=== PATIENT | male | born 1955 | race Caucasian/White ===

== ENCOUNTER 2017-11-04 16:32 | Observation (INO) ==
[2017-11-04] MEDS ORDERED: Naloxone 0.4 MG/ML INJ IVP PRN (20:48)
[2017-11-04] MEDS ORDERED: Ipratropium/Albuterol Neb 3 ML IH PRN (20:52)
[2017-11-04] MEDS: *HR* Heparin 5,000 UNIT/ML VIAL SQ SCH (22:01)
[2017-11-04] MEDS: 0.9 % Sodium Chloride 1,000 ML IVC SCH (22:01)
[2017-11-04] MEDS: *HR* Morphine 2 MG/ML SYRINGE IVP PRN (22:02)
--- NOTE | 2017-11-04 22:28 | Internal Med History&Physical ---
Date of Encounter: 11/04/17 Time of Encounter: 20:30 Assessment and Plan (1) SBO (small bowel obstruction) Current visit: No Status: Acute 1. Will place NG tube to LIWS. 2. Will keep npo and hydrate with IVF. 3. Dr. Velazquez will be consulted for surgical support. 4. Will order AAS in the morning to evaluate SBO. 5. IV Morphine PRN abdominal pain. 6. Will provide anti-emetics PRN. (2) Chest pain Current visit: Yes Status: Acute 1. Suspect this is secondary to abdominal pressure from SBO. 2. Chest pain resolved after NGT. 3. Will monitor on telemetry and trend troponins and EKG's. Qualifiers: Chest pain type: other chest pain Qualified Code(s): R07.89 - Other chest pain; R07.8 - Other chest pain (3) DVT prophylaxis Current visit: Yes Status: Acute 1. Heparin SQ. Internal Medicine - H&P: HPI Chief complaint: abdominal pain Admitted From: Hospital to Hospital Transfer Plans for Post Hospital Care: Home History of present illness: Mr. Rinaldi is a 62 year old male who presents in transfer from [facility] ER with complaints of chest pain, shortness of breath, and abdominal pain. Workup there revealed the patient had evidence of a small bowel obstruction on CT scan imaging. EKG and troponins were negative. Dr. Velazquez was contacted by ER and recommended patient be transferred here to the hospitalist service with a consult to General surgery. Of note, patient had a recent colonoscopy about a week ago by Dr. Ro which was negative. Upon my assessment of the patient, he is resting in bed comfortably with an NG tube in place. He states he feels much better since his NG tube was placed. He has had minimal abdominal pain since then. He denies any further chest pain or shortness of breath. He states he has had heart disease and a heart attack years ago, but he takes no medications now that I can elicit from him or his records. His chest pain was pressure in sensation, and he had shortness of breath. His chest pain and shortness of breath resolved once his NG tube was placed and his abdomen was decompressed. I suspect his chest pain was secondary to abdominal distention, but given his history, we will need to monitor his cardiac status. Past Med Surg Social Fam HX - Past Medical History Attestation: Yes The following information was validated with the patient. Source: patient, old records reviewed Medical history: arthritis, COPD, GERD, hyperlipidemia, hypertension, myocardial infarction Psychiatric history: no psych history - Past Surgical History Surgical History: cholecystectomy - Social History Smoking Status: Former smoker Smokeless Tobacco Status: No Alcohol use: none Drug use: none Current living situation: Home, With Family Activity Level: Independent ambulation Recent Out of Country Travel Within the Last 8 Weeks: No - Family History Brother Living Status: Hx Family Cancer: Yes (colon cancer) Internal Medicine - H&P: Meds Acetaminophen [Tylenol] 650 mg PO Q6HR PRN 11/04/17 [History] 3 Allergy/AdvReac Type Severity Reaction Status Date / Time No Known Allergies Allergy Verified 11/04/17 13:42 - Constitutional Constitutional: no chills, no fever(s), no night sweats - EENT Eyes: no blurry vision, no change in vision Ears: no ear pain, no tinnitus Nose, mouth and throat: no nasal congestion, no sinus pressure, no sore throat - Cardiovascular Cardiovascular ROS IM: chest pain, dyspnea - Respiratory Respiratory: dyspnea, no cough, no hemoptysis, no chest congestion, no excessive phlegm production, no change in phlegm color - Gastrointestinal Gastrointestinal: abdominal pain, diarrhea, nausea, vomiting, no hematemesis, no hematochezia, no melena - Genitourinary Genitourinary ROS male: no dysuria, no flank pain, no hematuria - Musculoskeletal Musculoskeletal ROS IM: no arthralgias, no back pain, no muscle cramps, no myalgias - Integumentary Integumentary IM: no rash, no jaundice - Neurological Neurological ROS: no dizziness, no focal weakness, no frequent falls, no headache(s) - Psychiatric Psychiatric: no anxiety, no depression - Endocrine Endocrine IM: no polydipsia, no polyuria - Hematologic/Lymphatic Hematologic/Lymphatic: no easy bruising, no lymphadenopathy - Allergic/Immunologic Allergic/Immunologic: no wheezing, no GI upset with certain foods - Constitutional Vitals: Temp Pulse Resp BP Pulse Ox 97.9 F 80 19 150/89 96 11/04/17 22:13 11/04/17 22:13 11/04/17 22:13 11/04/17 22:13 11/04/17 22:13 General appearance: Present: cooperative, mild distress (minimal), A&O X 3, pleasant - Head Head exam: Present: atraumatic, normal inspection - Eye Eye exam: Present: EOMI, PERRL. Absent: scleral icterus Pupils: Present: normal accommodation - ENT ENT exam: Present: mucous membranes dry, normal exam Additional comments: NG tube in place - Neck Neck exam general surgery: Present: full ROM, supple. Absent: lymphadenopathy, tenderness - Respiratory Respiratory exam: Present: CTAB. Absent: accessory muscle use, chest wall tenderness, rales, respiratory distress, wheezes - Cardiovascular Cardiovascular exam: Present: RRR, +S1, +S2. Absent: diastolic murmur, systolic murmur - GI/Abdominal GI/Abdominal exam: Present: hypoactive bowel sounds, soft, tenderness (minimal ternderness now; abdomen soft on exam). Absent: guarding, hepatomegaly, mass, normal bowel sounds, rebound, splenomegaly - Extremities Exam Extremities exam: Present: full ROM, warm, radial pulses palpable and symmetrical. Absent: calf tenderness, tenderness - Back Exam Back exam: Present: normal inspection. Absent: CVA tenderness (L), CVA tenderness (R) - Neurological Exam Neurological exam: Present: alert, CN II-XII intact, oriented X3, no focal deficits - Psychiatric Psychiatric exam: Present: normal affect, normal mood - Skin Skin exam: Present: dry, warm. Absent: rash Internal Med - H&P Results - Labs Labs: Cardiac Enzymes 11/04/17 Range/Units 21:23 Troponin I < 0.03 (< 0.04) ng/mL I reviewed labs from [facility] include the following: WBC 9.1 Hemoglobin 15.4 Hematocrit 44.7 Platelet count 287 Sodium 135 Potassium 4.4 Chloride 100 Carbon dioxide 25 BUN 21 Creatinine 0.[address] scan report reviewed suggesting small bowel obstruction - EKG Data -: EKG Interpreted by Myself - EKG Data Prior EKG available for review: no EKG comments: 11/04/17 22:34 NSR; no acute changes - Diagnostic Studies Chest x-ray Status: image reviewed by me (negative)
[2017-11-05 04:00] LABS: Basophils % 0.2 %; Hematocrit 42.2 % (37.5-50.1); Hemoglobin 13.9 g/dL (12.9-16.9); Immature Granulocytes % 0.2 % (0-4); Lymphocytes # 0.8 K/mcL (0.6-4.6); Lymphocytes % 6.2 %; Mean Corpuscular HGB Conc 32.9 g/dL (31.6-35.5); Mean Corpuscular Hemoglobin 29.6 pg (28.0-33.3); Mean Platelet Volume 9.2 fL (9.4-12.4); Monocytes # 1.2 K/mcL (0.0-1.3); Monocytes % 9.7 %; Neutrophils # 10.3 K/mcL (1.6-8.9); Platelet Count 258 K/mcL (140-400); Red Blood Count 4.69 M/mcL (4.19-5.50); Red Cell Distribution Width 12.6 % (11.5-14.5); Segmented Neutrophils % 83.7 %
[2017-11-05 04:10] LABS: Alanine Aminotransferase 10 Units/L (7-52); Albumin 4.3 g/dL (3.5-5.7); Albumin/Globulin Ratio 1.5 (1.1-2.2); Alkaline Phosphatase 92 Units/L (34-104); Aspartate Amino Transferase 12 Units/L (13-39); BUN/Creatinine Ratio 28 (6-26); Bilirubin,Total 0.4 mg/dL (0.3-1.0); Blood Urea Nitrogen 32 mg/dL (8-23); Calcium 8.8 mg/dL (8.6-10.3); Carbon Dioxide 24 mEq/L (23-29); Chloride 102 mEq/L (98-107); Globulin 2.9 g/dL (2.4-3.5); Glucose 114 mg/dL (70-105); Magnesium 2.1 mg/dL (1.6-2.6); Osmolality,Calculated 292 (280-300); Potassium 4.7 mEq/L (3.5-5.1); Sodium 137 mEq/L (136-145); Total Protein 7.2 g/dL (6.4-8.9); eGFR For African Americans > 60 (> 60); eGFR For Non-African Americans > 60 (> 60)
[2017-11-05] MEDS: Ondansetron 4 MG/2 ML VIAL IVP PRN ×2 (04:12→14:00)
[2017-11-05] MEDS: *HR* Morphine 2 MG/ML SYRINGE IVP PRN ×4 (07:34→20:57)
[2017-11-05] MEDS: *HR* Heparin 5,000 UNIT/ML VIAL SQ SCH ×2 (07:34→16:43)
[2017-11-05] MEDS: 0.9 % Sodium Chloride 1,000 ML IVC SCH (07:58)
--- NOTE | 2017-11-05 08:11 | General Surgery Consult Note ---
<Leyla Alexandre - Last Filed: 11/05/17 16:41> Date of Encounter: 11/05/17 Time of Encounter: 08:07 Assessment and Plan (1) Small bowel obstruction Current Visit: Yes Status: Acute 62 y M presenting with abdominal pain x 3 days, with CT concerning for Small Bowel Obstruction Trial of initial nonoperative management, with monitoring for improvement of status: -Gastrointestinal decompression: NG tube to LIWS. Pt states pain improvement s/ p NG tube -NPO until awaiting return to bowel function -IV hydration, replete electrolytes prn -Continue pain management -Anti-emetics PRN (2) DVT prophylaxis Current Visit: Yes Status: Acute Per protocol. Management per primary team. History of Present Illness Consult date: 11/05/17 Reason for consult: abdominal pain Requesting physician: Leandro Sheehan History of present illness: 62 year old male with past medical history of COPD, GERD, hyperlipidemia, hypertension, myocardial infarction and past surgical Hx of cholecystectomy 2 years ago who presented in transfer from [facility] ER with abdominal pain and chest pain. EKG and troponins negative. Pt endorses nausea and cramping abdominal pain x3 days, soft stools, NBNB emesis x 3 days. Pt endorses passing gas and BM movement yesterday. BM was dark-colored and appeared bloody. CT scan imaging concerning for evidence of a small bowel obstruction. Pt states abdominal pain improved following placement of NG tube. Past Med Surg Social Fam HX - Past Medical History Medical history: arthritis, COPD, GERD, hyperlipidemia, hypertension, myocardial infarction Psychiatric history: no psych history - Past Surgical History Surgical History: cholecystectomy - Social History Smoking Status: Former smoker Smokeless Tobacco Status: No Alcohol use: none Drug use: none - Family History Brother Living Status: Hx Family Cancer: Yes (colon cancer) Medications and Allergies Acetaminophen [Tylenol] 650 mg PO Q6HR PRN 11/04/17 [History] 3 Allergy/AdvReac Type Severity Reaction Status Date / Time No Known Allergies Allergy Verified 11/04/17 13:42 Review of Systems All systems PM: As documented above in the HPI. General Surgery Exam Initial Vital Signs Temp Pulse Resp BP Pulse Ox 97.4 F L 72 16 162/91 98 11/04/17 18:25 11/04/17 18:25 11/04/17 18:25 11/04/17 18:25 11/04/17 18:25 - General physical appearance no distress - Eyes normal ocular movement - ENT poor halfway - Neck other (NG tube in place) - Respiratory normal expansion, normal respiratory effort, clear to auscultation - Cardiovascular Cardiovascular exam: Present: RRR, no murmurs/rubs/gallops - Abdomen Abdomen general surgery: Present: bowel sounds present, soft, tender (mild tenderness on palpation in RUQ) - Psychiatric Psychiatric general surgery: Present: appropriate, speech is normal Exam Initial Vital Signs Temp Pulse Resp BP Pulse Ox 97.4 F L 72 16 162/91 98 11/04/17 18:25 11/04/17 18:25 11/04/17 18:25 11/04/17 18:25 11/04/17 18:25 Results - Labs 11/05/17 03:37 11/05/17 03:37 Abnormal lab results WBC 12.3 K/mcL (4.3-11.1) H 11/05/17 03:37 MPV 9.2 fL (9.4-12.4) L 11/05/17 03:37 Neutrophils # 10.3 K/mcL (1.6-8.9) H 11/05/17 03:37 BUN 32 mg/dL (8-23) H 11/05/17 03:37 BUN/Creatinine Ratio 28 (6-26) H 11/05/17 03:37 Glucose 114 mg/dL (70-105) H 11/05/17 03:37 AST 12 Units/L (13-39) L 11/05/17 03:37 Diabetes panel 11/05/17 Range/Units 03:37 Sodium 137 (136-145) mEq/L Potassium 4.7 (3.5-5.1) mEq/L Chloride 102 (98-107) mEq/L Carbon Dioxide 24 (23-29) mEq/L BUN 32 H (8-23) mg/dL Creatinine 1.14 (0.70-1.30) mg/dL Glucose 114 H (70-105) mg/dL Calcium 8.8 (8.6-10.3) mg/dL AST 12 L (13-39) Units/L ALT 10 (7-52) Units/L Alkaline Phosphatase 92 (34-104) Units/L Albumin 4.3 (3.5-5.7) g/dL Calcium panel 11/05/17 Range/Units 03:37 Calcium 8.8 (8.6-10.3) mg/dL Albumin 4.3 (3.5-5.7) g/dL Pituitary panel 11/05/17 Range/Units 03:37 Sodium 137 (136-145) mEq/L Potassium 4.7 (3.5-5.1) mEq/L Chloride 102 (98-107) mEq/L Carbon Dioxide 24 (23-29) mEq/L BUN 32 H (8-23) mg/dL Creatinine 1.14 (0.70-1.30) mg/dL Glucose 114 H (70-105) mg/dL Calcium 8.8 (8.6-10.3) mg/dL Adrenal panel 11/05/17 Range/Units 03:37 Sodium 137 (136-145) mEq/L Potassium 4.7 (3.5-5.1) mEq/L Chloride 102 (98-107) mEq/L Carbon Dioxide 24 (23-29) mEq/L BUN 32 H (8-23) mg/dL Creatinine 1.14 (0.70-1.30) mg/dL Glucose 114 H (70-105) mg/dL Calcium 8.8 (8.6-10.3) mg/dL Total Bilirubin 0.4 (0.3-1.0) mg/dL AST 12 L (13-39) Units/L ALT 10 (7-52) Units/L Alkaline Phosphatase 92 (34-104) Units/L Albumin 4.3 (3.5-5.7) g/dL All other labs normal. - Imaging Chest x-ray: report reviewed CT scan - abdomen: report reviewed Additional studies: EXAMINATION: SINGLE VIEW OF THE CHEST 11/04/2017 3:13 pm COMPARISON: 08/15/2015. HISTORY: ORDERING SYSTEM PROVIDED HISTORY: chest pain FINDINGS: Cardiac and mediastinal contours are unchanged. No focal consolidation, pneumothorax or sizable pleural effusion. No displaced fractures identified. XR/XR chest 1V portable IMPRESSION: No acute cardiopulmonary process. D/ / Manuel Prakash MD / Manuel Prakash MD Interpreting Provider: Manuel Prakash MD OF THE ABDOMEN AND PELVIS WITHOUT CONTRAST, 11/04/2017 3:13 pm TECHNIQUE: CT of the abdomen and pelvis was performed without the administration of intravenous contrast. Multiplanar reformatted images are provided for review. Dose modulation, iterative reconstruction, and/or weight based adjustment of the mA/kV was utilized to reduce the radiation dose to as low as reasonably achievable. COMPARISON: Prior studies most recent 05/02/2016 HISTORY: ORDERING SYSTEM PROVIDED HISTORY: abd pain and rectal bleeding FINDINGS: Lower Chest: Subtle density in posterior lower lobes may represent minimal dependent atelectasis. Curvilinear density within the lateral aspect of the base of the right middle lobe is unchanged and may represent minimal atelectasis/scar. Subtle area of focal nodularity along inferior aspect of right major fissure (image 6) is unchanged. Organs: No focal abnormality of unenhanced liver is identified. Patient is status post cholecystectomy. Again noted is mild prominence of extrahepatic biliary tree which is unchanged and may be physiologic related to prior cholecystectomy. Splenic calcifications consistent with changes of old granulomatous disease. Small splenule is visualized (image 23). There is faint visualization of normal caliber pancreatic duct, unchanged. No definite focal abnormality of unenhanced pancreas is identified. Adrenal glands and kidneys are unchanged in appearance. Prominent low-attenuation lesion/cyst along posterior margin of upper/midpole of the left kidney is again identified and not significantly changed. Finding measures approximately 7.5 cm in maximum transverse diameter. GI/Bowel: There is mild-moderate distention of the stomach by fluid and particulate material. There is abnormal distention of several loops of small bowel within the mid/lower abdomen and pelvis with suggestion of transition to normal caliber distal small bowel/terminal ileum in the right pelvis. Findings suggest presence of distal small bowel obstruction. Although limited due to lack of contrast material, there is question of presence of mild mural thickening of small bowel loops in the right pelvis near the transition zone (images 71-92). There is suggestion of minimal injection of mesenteric fat within the lower abdomen/pelvis. Normal appearing appendix is identified. Colon is relatively decompressed. No focal fluid collection to suggest the presence of abscess. There is suggestion of trace free fluid within the pelvis. No evidence of intraperitoneal free air. Pelvis: Prostate gland is unchanged in appearance. Urinary bladder is relatively decompressed. Peritoneum/Retroperitoneum: No new abdominal/pelvic lymphadenopathy is identified. Minimal atherosclerotic changes of the abdominal aorta with no evidence of aneurysm. Bones/Soft Tissues: There are degenerative changes of the spine. Again noted is degenerative/arthropathic change with bony ankylosis involving both sacroiliac joints, right more so than left. Nonspecific benign-appearing calcification is identified along the lateral margin of the left gluteal musculature (image 100). Finding could be related to changes of prior trauma. CT/CT abd pelvis wo no iv no oral IMPRESSION: 1. Findings suspicious for presence of distal small bowel obstruction with suggestion of transition zone in the region of the distal/terminal ileum. 2. Possible mural thickening of small bowel loops just proximal to the transition zone. Exact etiology of the finding is indeterminate. Infectious/inflammatory etiologies and changes associated with the suspected small bowel obstruction are in the differential diagnosis. 3. Findings suggestive of presence of trace free fluid within the pelvis. No focal fluid collection to suggest presence of abscess. No evidence of intraperitoneal free air. D/ / 11/04/2017 15:51:41 Lam Whit[facility] Inter[facility]ting Provider: Lam Whitmore MD Consult Discharge Plan - Plan Referrals: Luisa Red MD [Primary Care Provider] - <Rolando Velazquez - Last Filed: 11/05/17 17:45> Date of Encounter: 11/05/17 Review of Systems All systems PM: A 10-system review of systems was performed and is negative for pertinent findings except as documented above in the HPI. General Surgery Exam Initial Vital Signs Temp Pulse Resp BP Pulse Ox 97.4 F L 72 16 162/91 98 11/04/17 18:25 11/04/17 18:25 11/04/17 18:25 11/04/17 18:25 11/04/17 18:25 Exam Initial Vital Signs Temp Pulse Resp BP Pulse Ox 97.4 F L 72 16 162/91 98 11/04/17 18:25 11/04/17 18:25 11/04/17 18:25 11/04/17 18:25 11/04/17 18:25 Results - Labs 11/05/17 03:37 11/05/17 03:37 Abnormal lab results WBC 12.3 K/mcL (4.3-11.1) H 11/05/17 03:37 MPV 9.2 fL (9.4-12.4) L 11/05/17 03:37 Neutrophils # 10.3 K/mcL (1.6-8.9) H 11/05/17 03:37 BUN 32 mg/dL (8-23) H 11/05/17 03:37 BUN/Creatinine Ratio 28 (6-26) H 11/05/17 03:37 Glucose 114 mg/dL (70-105) H 11/05/17 03:37 AST 12 Units/L (13-39) L 11/05/17 03:37 Diabetes panel 11/05/17 Range/Units 03:37 Sodium 137 (136-145) mEq/L Potassium 4.7 (3.5-5.1) mEq/L Chloride 102 (98-107) mEq/L Carbon Dioxide 24 (23-29) mEq/L BUN 32 H (8-23) mg/dL Creatinine 1.14 (0.70-1.30) mg/dL Glucose 114 H (70-105) mg/dL Calcium 8.8 (8.6-10.3) mg/dL AST 12 L (13-39) Units/L ALT 10 (7-52) Units/L Alkaline Phosphatase 92 (34-104) Units/L Albumin 4.3 (3.5-5.7) g/dL Calcium panel 11/05/17 Range/Units 03:37 Calcium 8.8 (8.6-10.3) mg/dL Albumin 4.3 (3.5-5.7) g/dL Pituitary panel 11/05/17 Range/Units 03:37 Sodium 137 (136-145) mEq/L Potassium 4.7 (3.5-5.1) mEq/L Chloride 102 (98-107) mEq/L Carbon Dioxide 24 (23-29) mEq/L BUN 32 H (8-23) mg/dL Creatinine 1.14 (0.70-1.30) mg/dL Glucose 114 H (70-105) mg/dL Calcium 8.8 (8.6-10.3) mg/dL Adrenal panel 11/05/17 Range/Units 03:37 Sodium 137 (136-145) mEq/L Potassium 4.7 (3.5-5.1) mEq/L Chloride 102 (98-107) mEq/L Carbon Dioxide 24 (23-29) mEq/L BUN 32 H (8-23) mg/dL Creatinine 1.14 (0.70-1.30) mg/dL Glucose 114 H (70-105) mg/dL Calcium 8.8 (8.6-10.3) mg/dL Total Bilirubin 0.4 (0.3-1.0) mg/dL AST 12 L (13-39) Units/L ALT 10 (7-52) Units/L Alkaline Phosphatase 92 (34-104) Units/L Albumin 4.3 (3.5-5.7) g/dL All other labs normal. - Attending Attestation I examined this patient and my medical decision-making was reviewed with the Resident Physician. I agree with the documented findings, disposition and treatment plan as described except to the extent set forth below. Review the above assessment and evaluation and agree with the above plan. Patient has had supposedly an 18 history of abdominal pain particularly in the right upper quadrant. He had a recent colonoscopy performed last week by Dr. Ro. Patient continued to have some discomfort and had some nausea vomiting that was associate with some diarrhea as well. He has been passing flatus but still having some abdominal discomfort. I agree with NG tube decompression will continue to follow the output. I will inform my colleague that the patient is in house. The patient may require further studies regarding his prolonged history of abdominal pain and his GI symptoms. She agrees to the above plan.
--- NOTE | 2017-11-05 17:16 | Internal Med Progress Note ---
Date of Encounter: 11/05/17 Time of Encounter: 11:00 - Assessment and plan (1) Small bowel obstruction Current Visit: Yes Status: Acute Assessment and plan: -Paitient with CT concerning for Small Bowel Obstruction -Surgery following with recommendations for gastrointestinal decompression: NG tube to LIWS. - Subjective Interval history: Patient still has nausea and abdominal discomfort this morning - Constitutional Vitals: Temp Pulse Resp BP Pulse Ox 98.4 F 57 16 138/79 93 11/05/17 15:31 11/05/17 15:31 11/05/17 15:31 11/05/17 15:31 11/05/17 15:31 General appearance: Present: cooperative, mild distress (minimal), A&O X 3, pleasant - Cardiovascular Cardiovascular exam: Present: RRR, +S1, +S2. Absent: diastolic murmur, gallop, rubs, systolic murmur - GI/Abdominal GI/Abdominal exam: Present: hypoactive bowel sounds Internal Medicine: Result - Labs CBC & Chem 7: 11/05/17 03:37 11/05/17 03:37 Labs: Short CBC 11/05/17 Range/Units 03:37 WBC 12.3 H (4.3-11.1) K/mcL Hgb 13.9 D (12.9-16.9) g/dL Hct 42.2 (37.5-50.1) % Plt Count 258 (140-400) K/mcL Neutrophils # 10.3 H (1.6-8.9) K/mcL BMP 11/05/17 03:37 Sodium 137 Potassium 4.7 Chloride 102 Carbon Dioxide 24 BUN 32 H Creatinine 1.14 Glucose 114 H Calcium 8.8 Cardiac Enzymes 11/04/17 11/05/17 11/05/17 Range/Units 21:23 03:37 09:14 Troponin I < 0.03 < 0.03 < 0.03 (< 0.04) ng/mL Liver Function 11/05/17 Range/Units 03:37 Total Bilirubin 0.4 (0.3-1.0) mg/dL AST 12 L (13-39) Units/L ALT 10 (7-52) Units/L Alkaline Phosphatase 92 (34-104) Units/L Albumin 4.3 (3.5-5.7) g/dL - Impressions Impressions Chest/Abdomen X-ray 11/05/17 07:00 IMPRESSION: Persistently dilated loops of small bowel compatible with small bowel obstruction as above. D/ / Patricia Serrano Cha, MD / Patricia Serrano Cha, MD Interpreting Provider: Patricia Serrano Cha, MD Consult Discharge Plan - Plan Referrals: Luisa Red MD [Primary Care Provider] -
[2017-11-06] MEDS: *HR* Heparin 5,000 UNIT/ML VIAL SQ SCH ×2 (06:02→17:37)
[2017-11-06] MEDS: Ondansetron 4 MG/2 ML VIAL IVP PRN ×2 (08:54→17:38)
[2017-11-06] MEDS: *HR* Morphine 2 MG/ML SYRINGE IVP PRN ×3 (09:00→20:42)
[2017-11-06 09:43] LABS: BUN/Creatinine Ratio 34 (6-26); Blood Urea Nitrogen 28 mg/dL (8-23); Calcium 8.6 mg/dL (8.6-10.3); Carbon Dioxide 25 mEq/L (23-29); Chloride 103 mEq/L (98-107); Glucose 79 mg/dL (70-105); Osmolality,Calculated 292 (280-300); Sodium 139 mEq/L (136-145); eGFR For African Americans > 60 (> 60); eGFR For Non-African Americans > 60 (> 60)
[2017-11-06 10:04] LABS: Basophils % 0.3 %; Eosinophils % 0.1 %; Hematocrit 42.7 % (37.5-50.1); Hemoglobin 13.8 g/dL (12.9-16.9); Immature Granulocytes % 0.2 % (0-4); Lymphocytes # 0.9 K/mcL (0.6-4.6); Lymphocytes % 9.5 %; Mean Corpuscular HGB Conc 32.3 g/dL (31.6-35.5); Mean Corpuscular Hemoglobin 29.6 pg (28.0-33.3); Mean Corpuscular Volume 91.6 fL (83.0-100.0); Mean Platelet Volume 9.3 fL (9.4-12.4); Monocytes # 0.8 K/mcL (0.0-1.3); Monocytes % 8.8 %; Neutrophils # 7.2 K/mcL (1.6-8.9); Platelet Count 274 K/mcL (140-400); Red Blood Count 4.66 M/mcL (4.19-5.50); Red Cell Distribution Width 12.7 % (11.5-14.5); Segmented Neutrophils % 81.1 %
[2017-11-06] MEDS ORDERED: Chloraseptic Spray 177 ML BOTTLE MM PRN (11:47)
--- NOTE | 2017-11-06 11:58 | General Surgery Progress Note ---
Date of Encounter: 11/06/17 Time of Encounter: 11:30 - Assessment and Plan (1) Partial small bowel obstruction Current Visit: Yes Status: Acute Patient symptoms are improving with conservative measures and plan to continue: Bowel rest with NG tube to low intermittent wall suction IV fluids Supportive care and pain control Serial abdominal exams Surgery will continue to follow to assess progress and make recommendations Subjective Patient reports: no new complaints, feels better, pain is less, voiding w/o difficulty, flatus, bowel movement (small this morning), afebrile Objective Vital Signs - Last 8 Hours Temp Pulse Resp BP Pulse Ox 11/06/17 06:25 98.5 F 68 16 124/78 97 Intake and Output 11/05/17 11/06/17 11/06/17 23:59 07:59 15:59 Intake Total 1000 / 1000 Output Total 405 / 405 570 / 570 200 / 200 Balance 595 / 595 -570 / -570 -200 / -200 Intake: IV Fluids 1000 / 1000 0.9 % Sodium Chloride 1,000 ML 1000 / 1000 @ 125 mls/hr IVC .Q8H DIPIKA Rx#: [id number] Output: Urine 150 / 150 200 / 200 200 / 200 Gastric Drainage 255 / 255 370 / 370 Left Nare 255 / 255 370 / 370 - General physical appearance well developed, well nourished, no distress - Eyes normal ocular movement - ENT normal mucosa, atraumatic, normocephalic - Neck Neck exam: trachea midline - Respiratory normal respiratory effort, clear to auscultation - Cardiovascular Cardiovascular exam: Present: RRR - Abdomen Abdomen: Present: bowel sounds present (minimal, hypoactive), soft, non tender, wound (NG tube to LIWS with bilious drainage noted (approximately 400ml noted)) - Neurologic CN 2-12 grossly intact - Psychiatric oriented to time, oriented to person, oriented to place, speech is normal, memory intact - Labs 11/06/17 09:21 11/06/17 09:21 Diabetes panel 11/06/17 Range/Units 09:21 Sodium 139 (136-145) mEq/L Potassium 4.0 (3.5-5.1) mEq/L Chloride 103 (98-107) mEq/L Carbon Dioxide 25 (23-29) mEq/L BUN 28 H (8-23) mg/dL Creatinine 0.82 (0.70-1.30) mg/dL Glucose 79 (70-105) mg/dL Calcium 8.6 (8.6-10.3) mg/dL Calcium panel 11/06/17 Range/Units 09:21 Calcium 8.6 (8.6-10.3) mg/dL Pituitary panel 11/06/17 Range/Units 09:21 Sodium 139 (136-145) mEq/L Potassium 4.0 (3.5-5.1) mEq/L Chloride 103 (98-107) mEq/L Carbon Dioxide 25 (23-29) mEq/L BUN 28 H (8-23) mg/dL Creatinine 0.82 (0.70-1.30) mg/dL Glucose 79 (70-105) mg/dL Calcium 8.6 (8.6-10.3) mg/dL Adrenal panel 11/06/17 Range/Units 09:21 Sodium 139 (136-145) mEq/L Potassium 4.0 (3.5-5.1) mEq/L Chloride 103 (98-107) mEq/L Carbon Dioxide 25 (23-29) mEq/L BUN 28 H (8-23) mg/dL Creatinine 0.82 (0.70-1.30) mg/dL Glucose 79 (70-105) mg/dL Calcium 8.6 (8.6-10.3) mg/dL Consult Discharge Plan - Plan Referrals: Luisa Red MD [Primary Care Provider] - - Attending Attestation For this encounter, I have reviewed the EXTRACTION SUPERVISOR or PA documentation, treatment plan, and medical decision making; and I have had face to face time with this patient.
--- NOTE | 2017-11-06 18:43 | Internal Med Progress Note ---
Date of Encounter: 11/06/17 Time of Encounter: 11:00 - Assessment and plan (1) Small bowel obstruction Current Visit: Yes Status: Acute Assessment and plan: -Paitient with CT concerning for Small Bowel Obstruction -Surgery following with recommendations for gastrointestinal decompression: NG tube to LIWS. - Subjective Interval history: Patient still has nausea and abdominal discomfort this morning - Constitutional Vitals: Temp Pulse Resp BP Pulse Ox 98.5 F 70 18 144/88 97 11/06/17 15:40 11/06/17 15:40 11/06/17 15:40 11/06/17 15:40 11/06/17 15:40 General appearance: Present: cooperative, mild distress (minimal), A&O X 3, pleasant - Respiratory Respiratory exam: Present: CTAB. Absent: accessory muscle use, rales, rhonchi, wheezes - Cardiovascular Cardiovascular exam: Present: RRR, +S1, +S2. Absent: diastolic murmur, gallop, rubs, systolic murmur Internal Medicine: Result - Labs CBC & Chem 7: 11/06/17 09:21 11/06/17 09:21 Labs: Short CBC 11/06/17 Range/Units 09:21 WBC 8.9 (4.3-11.1) K/mcL Hgb 13.8 (12.9-16.9) g/dL Hct 42.7 (37.5-50.1) % Plt Count 274 (140-400) K/mcL Neutrophils # 7.2 (1.6-8.9) K/mcL BMP 11/06/17 09:21 Sodium 139 Potassium 4.0 Chloride 103 Carbon Dioxide 25 BUN 28 H Creatinine 0.82 Glucose 79 Calcium 8.6 - Impressions Impressions KUB X-Ray 11/06/17 10:46 IMPRESSION: Intragastric esophagogastric tube positioning, kinked at the proximal side hole. D/ / Raudel Sahu / Raudel Sahu Interpreting Provider: Raudel Sahu X-Ray 11/06/17 11:46 IMPRESSION: 1. Tip of the enteric catheter overlies the body of the stomach. Side hole is distal to the GE junction. Of note, there is a kink in the catheter at the level of the side hole. D/ / Victor Manuel Hall MD / Victor Manuel Hall MD Interpreting Provider: Victor Manuel Hall MD Consult Discharge Plan - Plan Referrals: Luisa Red MD [Primary Care Provider] -
[2017-11-06] MEDS ORDERED: *HR* Promethazine 25 MG/ML VIAL IVP PRN (21:33)
[2017-11-06] MEDS: 0.9 % Sodium Chloride 1,000 ML IVC SCH (21:49)
[2017-11-07] MEDS: *HR* Heparin 5,000 UNIT/ML VIAL SQ SCH ×2 (05:44→18:23)
[2017-11-07] MEDS: 0.9 % Sodium Chloride 1,000 ML IVC SCH ×3 (05:44→23:33)
[2017-11-07] MEDS: *HR* Morphine 2 MG/ML SYRINGE IVP PRN ×2 (07:12→11:29)
--- NOTE | 2017-11-07 11:52 | General Surgery Progress Note ---
Date of Encounter: 11/07/17 Time of Encounter: 11:30 - Assessment and Plan (1) Partial small bowel obstruction Current Visit: Yes Status: Acute Patient symptoms are improving with conservative measures and plan to continue: CT shows no evidence of residual small bowel dilation Repeat CT of the pelvis shows contrast moving through into the colon Patient with positive flatus and liquid stools Clear liquids and advance to soft diet as tolerated Saline lock IV fluids Supportive care and pain control May discharge from a surgery standpoint if patient is able to tolerated liquids and plan for outpatient f/u in the surgery office in 2 weeks. Subjective Patient reports: no new complaints, feels better, voiding w/o difficulty, flatus , bowel movement, diarrhea, afebrile Objective Vital Signs - Last 8 Hours Temp Pulse Resp BP Pulse Ox 11/07/17 11:45 98.2 F 63 19 158/85 98 11/07/17 08:21 99.4 F 62 18 137/69 97 Intake and Output 11/06/17 11/07/17 11/07/17 23:59 07:59 15:59 Intake Total 1000 / 1000 Output Total 150 / 150 Balance -150 / -150 1000 / 1000 Intake: IV Fluids 1000 / 1000 0.9 % Sodium Chloride 1,000 ML 1000 / 1000 @ 125 mls/hr IVC .Q8H [facility] Rx#: [id number] Output: Urine 150 / 150 Other: Blood Glucose* 77 73 - Labs 11/06/17 09:21 11/06/17 09:21 Consult Discharge Plan - Plan Additional Instructions: Advance to soft, chopped meat diet as tolerated Referrals: Luisa Red MD [Primary Care Provider] - Marizol Cruz CNP [Advanced Practice Nurse] - 11/20/17 2:30 pm (hospital follow-up) - Attending Attestation For this encounter, I have reviewed the SHIFT MECHANIC or PA documentation, treatment plan, and medical decision making; and I have had face to face time with this patient.
--- NOTE | 2017-11-07 16:22 | Internal Med Progress Note ---
Date of Encounter: 11/07/17 Time of Encounter: 16:21 - Assessment and plan (1) Partial small bowel obstruction Current Visit: Yes Status: Acute Assessment and plan: Current Visit: Yes Status: Acute Continue conservative mgt. He's tolerating his diet being advanced to soft diet and is he is passing flatus. He still has not had a BM. His abdominal pain is controlled. Repeat CT of the pelvis shows contrast moving through into the colon. Possibly ready to discharge Monday or . Outpatient f/u in the surgery office in 2 weeks. Code(s): K56.600 - Partial intestinal obstruction, unspecified as to cause - Time Spent With Patient 25 - 35 minutes - Constitutional Vitals: Temp Pulse Resp BP Pulse Ox 98.8 F 68 19 149/81 98 11/07/17 15:32 11/07/17 15:32 11/07/17 15:32 11/07/17 15:32 11/07/17 15:32 General appearance: Present: cooperative, mild distress (minimal), A&O X 3, pleasant Internal Medicine: Result - Labs CBC & Chem 7: 11/06/17 09:21 11/06/17 09:21 - Impressions Impressions Chest X-Ray 11/06/17 20:58 IMPRESSION: Nasogastric tube tip is in the expected location. Continued gaseous dilation of small bowel in the mid to right upper abdomen. D/ / Marin Salmon MD / Marin Salmon MD Interpreting Provider: Marin Salmon MD X-Ray 11/06/17 20:58 IMPRESSION: Nasogastric tube tip is in the expected location. Continued gaseous dilation of small bowel in the mid to right upper abdomen. D/ / Marin Salmon MD / Marin Salmon MD Interpreting Provider: Marin Salmon MD Abdomen/Pelvis CT 11/07/17 09:15 IMPRESSION: On initial images oral contrast had not yet progressed from small bowel into large bowel. However, there has been interval resolution of previously noted small bowel distension involving multiple small bowel loops as compared to prior exams. Currently small bowel appears to be normal in caliber and without findings for small bowel obstruction. Additional images obtained approximately 2.5 hours later demonstrate progression of contrast completely through the small bowel and into large bowel with only some minimal residual contrast present within distal small bowel and majority of contrast present within large bowel to the level of the distal sigmoid colon. As noted above findings are compatible with resolution of previously noted small bowel obstruction. D/ / 11/07/2017 10:58:47 Jc Gonzalez MD / rasheeda Interpreting Provider: Jc Gonzalez MD Consult Discharge Plan - Plan Additional Instructions: Advance to soft, chopped meat diet as tolerated Referrals: Luisa Red MD [Primary Care Provider] - Marizol Cruz CNP [Advanced Practice Nurse] - 11/20/17 2:30 pm (hospital follow-up)
[2017-11-08 05:01] LABS: Basophils % 0.6 %; Eosinophils # 0.1 K/mcL (0.0-0.6); Hematocrit 35.3 % (37.5-50.1); Immature Granulocytes % 0.3 % (0-4); Lymphocytes # 1.2 K/mcL (0.6-4.6); Lymphocytes % 16.7 %; Mean Corpuscular HGB Conc 32.9 g/dL (31.6-35.5); Mean Corpuscular Hemoglobin 29.5 pg (28.0-33.3); Mean Corpuscular Volume 89.8 fL (83.0-100.0); Mean Platelet Volume 9.2 fL (9.4-12.4); Monocytes # 0.8 K/mcL (0.0-1.3); Monocytes % 10.9 %; Neutrophils # 4.8 K/mcL (1.6-8.9); Platelet Count 241 K/mcL (140-400); Red Blood Count 3.93 M/mcL (4.19-5.50); Red Cell Distribution Width 12.4 % (11.5-14.5); Segmented Neutrophils % 69.5 %
[2017-11-08 05:03] LABS: Hemoglobin 11.6 g/dL (12.9-16.9)
[2017-11-08 05:26] LABS: BUN/Creatinine Ratio 27 (6-26); Blood Urea Nitrogen 17 mg/dL (8-23); Calcium 7.9 mg/dL (8.6-10.3); Carbon Dioxide 27 mEq/L (23-29); Chloride 109 mEq/L (98-107); Glucose 101 mg/dL (70-105); Osmolality,Calculated 292 (280-300); Potassium 4.1 mEq/L (3.5-5.1); Sodium 140 mEq/L (136-145); eGFR For African Americans > 60 (> 60); eGFR For Non-African Americans > 60 (> 60)
[2017-11-08] MEDS: *HR* Heparin 5,000 UNIT/ML VIAL SQ SCH (05:37)
--- NOTE | 2017-11-08 07:54 | Electrocardiograph Report ---
[place] [id number] Test Date: 2017-11-05 Pat Name: Keshawn Rinaldi Department: 114 Room: [facility] Gender: M Payroll Accounting Manager: JJG : [id number] Requested By: Leandro Sheehan Order Number: [id number] Reading MD: Jovani Renner MD Measurements Intervals [place] Rate: 65 P: 43 SD: 219 QRS: 6 QRSD: 97 T: 30 QT: 387 QTc: 399 Interpretive Statements SINUS RHYTHM WITH FIRST DEGREE AV BLOCK INCOMPLETE RIGHT BUNDLE BRANCH BLOCK Electronically Signed On 11-08-2017 6:24:15 EST by Jovani Renner MD
[2017-11-08] MEDS: 0.9 % Sodium Chloride 1,000 ML IVC SCH (07:56)
--- NOTE | 2017-11-08 10:19 | General Surgery Progress Note ---
Date of Encounter: 11/08/17 Time of Encounter: 10:00 - Assessment and Plan (1) Partial small bowel obstruction Current Visit: Yes Status: Acute Patient symptoms are improving with conservative measures and plan to continue: CT shows no evidence of residual small bowel dilation Repeat CT of the pelvis shows contrast moving through into the colon Patient with positive flatus and continued stools Advance to soft diet as tolerated May remove IV Supportive care and pain control- Tylenol for back discomfort May discharge from a surgery standpoint if patient is able to tolerated liquids and plan for outpatient f/u in the surgery office in 2 weeks. Surgery will sign off at this time. Please call with any further questions or concerns. Thank you for allowing us to participate in the care of this patient. Subjective Patient reports: no new complaints, feels better, tolerating liquids well (full liquids), voiding w/o difficulty, flatus, bowel movement, afebrile, other ( Reports that abdominal pain has resolved) Objective Vital Signs - Last 8 Hours Temp Pulse Resp BP Pulse Ox 11/08/17 07:13 98.6 F 55 16 117/66 97 11/08/17 04:28 98.3 F 56 18 127/77 96 Intake and Output 11/07/17 11/08/17 11/08/17 23:59 07:59 15:59 Intake Total 1720 / 1720 1000 / 1000 360 / 360 Balance 1720 / 1720 1000 / 1000 360 / 360 Intake: IV Fluids 1000 / 1000 1000 / 1000 0.9 % Sodium Chloride 1,000 ML 1000 / 1000 1000 / 1000 @ 125 mls/hr IVC .Q8H [facility] Rx#: [id number] Oral 720 / 720 360 / 360 Other: Meal Dinner Breakfast Percent of Meal Consumed 100% 100% Weight 72.3 kg Patient Weight 11/08/17 23:59 Weight 72.3 kg - General physical appearance well developed, well nourished, no distress, no pain - Eyes normal ocular movement - ENT normal mucosa, atraumatic, normocephalic - Neck Neck exam: trachea midline - Respiratory normal respiratory effort, clear to auscultation - Cardiovascular Cardiovascular exam: Present: RRR - Abdomen Abdomen: Present: bowel sounds present, soft, non tender - Neurologic CN 2-12 grossly intact - Musculoskeletal normal gait, normal posture - Psychiatric oriented to time, oriented to person, oriented to place, speech is normal, memory intact - Labs 11/08/17 04:33 11/08/17 04:33 Diabetes panel 11/08/17 Range/Units 04:33 Sodium 140 (136-145) mEq/L Potassium 4.1 (3.5-5.1) mEq/L Chloride 109 H (98-107) mEq/L Carbon Dioxide 27 (23-29) mEq/L BUN 17 (8-23) mg/dL Creatinine 0.64 L (0.70-1.30) mg/dL Glucose 101 (70-105) mg/dL Calcium 7.9 L (8.6-10.3) mg/dL Calcium panel 11/08/17 Range/Units 04:33 Calcium 7.9 L (8.6-10.3) mg/dL Pituitary panel 11/08/17 Range/Units 04:33 Sodium 140 (136-145) mEq/L Potassium 4.1 (3.5-5.1) mEq/L Chloride 109 H (98-107) mEq/L Carbon Dioxide 27 (23-29) mEq/L BUN 17 (8-23) mg/dL Creatinine 0.64 L (0.70-1.30) mg/dL Glucose 101 (70-105) mg/dL Calcium 7.9 L (8.6-10.3) mg/dL Adrenal panel 11/08/17 Range/Units 04:33 Sodium 140 (136-145) mEq/L Potassium 4.1 (3.5-5.1) mEq/L Chloride 109 H (98-107) mEq/L Carbon Dioxide 27 (23-29) mEq/L BUN 17 (8-23) mg/dL Creatinine 0.64 L (0.70-1.30) mg/dL Glucose 101 (70-105) mg/dL Calcium 7.9 L (8.6-10.3) mg/dL Consult Discharge Plan - Plan Additional Instructions: Advance to soft, chopped meat diet as tolerated Referrals: Luisa Red MD [Primary Care Provider] - Marizol Cruz CNP [Advanced Practice Nurse] - 11/20/17 2:30 pm (hospital follow-up)
--- NOTE | 2017-11-08 10:41 | Discharge Summary ---
Date of Encounter: 11/15/17 Time of Encounter: 10:38 - Discharge Diagnosis (1) Partial small bowel obstruction Priority: Primary Status: Acute Code(s): K56.600 - Partial intestinal obstruction, unspecified as to cause - Discharge Medications Home Medications: Acetaminophen [Tylenol] 650 mg PO Q6HR PRN 11/04/17 [History] Allergies/Adverse Reactions: 3 Allergy/AdvReac Type Severity Reaction Status Date / Time No Known Allergies Allergy Verified 11/04/17 13:42 Procedures/tests Complete & Pending: Procedures Performed prior 72 hours Category Date Time Status CT abd pelvis wo iv oral only [CT] Routine Cat Scan 11/07/17 09:15 Completed Date of admission: 11/04/17 18:19 Primary care physician: Luisa Red MD Consults: 11/04/17 20:50 Consult to Physician [CONS] Routine Consulting Provider: Rolando Velazquez Reason for Consult: SBO Call Completed: Yes Discharging clinician: Parag Dan - Patient Status Disposition: Home, Self-Care - Discharge Instructions Follow Up With: Luisa Red MD [Primary Care Provider] - Marizol Cruz CNP [Advanced Practice Nurse] - 11/20/17 2:30 pm (hospital follow-up) Additional Instructions: Advance to soft, chopped meat diet as tolerated Hospital course: The patient is a 62 year old man who presents in transfer from [facility] ER with complaints of chest and abdominal pain. Workup there revealed the patient had evidence of a small bowel obstruction on CT scan imaging. EKG and troponins were negative. Dr. Velazquez was contacted by ER and recommended patient be transferred here to the hospitalist service with a consult to General surgery. Of note, patient had a recent colonoscopy about a week ago by Dr. Ro which was negative. An NG tube in place and conservative mgt orporate. . He states he feels much better since his NG tube was placed. He has had minimal abdominal pain since then. He denies any further chest pain or shortness of breath. His chest pain and shortness of breath resolved once his NG tube was placed and his abdomen was decompressed. His chest pain was presumed secondary to abdominal distention. He was cleared bysurgery to go home and continue advancing his diet. Continue conservative mgt. He's tolerating his diet being advanced to soft diet and is he is passing flatus. He still has not had a BM. His abdominal pain is controlled. Repeat CT of the pelvis shows contrast moving through into the colon. Possibly ready to discharge Monday or . Outpatient f/u in the surgery office General physical appearance well developed, well nourished, no distress, no pain - Eyes normal ocular movement - ENT normal mucosa, atraumatic, normocephalic - Neck Neck exam: trachea midline - Respiratory normal respiratory effort, clear to auscultation - Cardiovascular Cardiovascular exam: Present: RRR - Abdomen Abdomen: Present: bowel sounds present, soft, non tender - Neurologic CN 2-12 grossly intact - Musculoskeletal normal gait, normal posture - Psychiatric oriented to time, oriented to person, oriented to place, speech is normal, memory intact - Labs Time spent discussing smoking cessation with patient: more than 10 minutes - Time Spent with Patient Total time spent providing and/or coordinating discharge services: Greater than 30 minutes - Constitutional Vitals: Temp Pulse Resp BP Pulse Ox 98.6 F 55 16 117/66 97 11/08/17 07:13 11/08/17 07:13 11/08/17 07:13 11/08/17 07:13 11/08/17 07:13 General appearance: Present: cooperative, mild distress (minimal), A&O X 3, pleasant
[2017-11-08 11:06] VITALS: BP 147/78
== END 2017-11-08 14:48 | disposition home or self-care (01) ==
LOC: 3ANU → 3NENU 21:21 → 1NENUPED 11-06 10:57
PROVIDERS: ADMIT Hospitalist; ATTEND Hospitalist